=== PATIENT | female | born 1960 ===

== ENCOUNTER 2025-05-26 08:11 | Outpatient (CLI) | payer OTHER ==
[2025-05-26 09:36] LABS: URINE APPEARANCE Clear; URINE BILIRRUBIN Negative (NEGATIVE); URINE BLOOD Trace; URINE COLOR Yellow; URINE GLUCOSE Negative (NEGATIVE); URINE KETONE Negative (NEGATIVE); URINE LEUKOCYTE Trace; URINE NITRATE Negative; URINE PROTEIN Negative (NEGATIVE); URINE UROBILINOGEN 0.2 E.U./dl
[2025-05-26 09:37] LABS: URINE BACTERIA 100.7 uL (0.0-1933); URINE EPITHELIAL CELLS 28.2 uL (0.0-38.8); URINE RBC 32.8 uL (0.0-20.8); URINE WBC 14.6 uL (0.0-23.2)
[2025-05-26 09:39] LABS: BASO % 0.8 % (0.1-1.2); EOS # 0.56 (0.04-0.54); EOS % 9.1 % (0.7-7.0); LYMPH # 1.84 (1.18-3.74); LYMPH % 29.8 % (19.3-53.1); MEAN PLATELET VOLUME 9.70 fl (9.4-12.4); MONO # 0.36 (0.24-0.82); MONO % 5.8 % (4.7-12.5); NEUT # 3.36 (1.56-6.13); NEUT % 54.3 % (34.0-71.1); RED CELL DISTRIBUTION WIDTH 12.8 % (11.6-14.4)
[2025-05-26 09:41] LABS: URINE CAST 0.00 uL (0.0-1.40)
[2025-05-26 09:59] LABS: INR 1.0
[2025-05-26 10:51] LABS: ALT/SGPT 28.0 U/L (12-78); AST/SGOT 17.0 U/L (15-37); BILIRUBIN TOTAL 0.4 mg/dL (0.3-1.2); BUN CREA RATIO 10.0 (7.0-25.0); CREATININE SERUM 0.79 mg/dL (0.55-1.02); GFR 73.04; GLOBULINA 3.6 G/DL (2.4-3.5); GLUCOSE FASTING 101.0 mg/dL (65-100); LDH 215.0 U/L (84-246); OSMOLALITY SERUM 285.0 MOSM/KG (275-295); TSH 3.76 uIU/mL (0.358-3.74)
[2025-05-27 10:08] LABS: CA 125 9.7 U/mL (0.0-38.1); CA 19-9 10.0 U/mL (0-35)
== END 2025-05-26 08:12 | disposition home or self-care (01) ==
LOC: RAD 08:11
DX: G89.3 Neoplasm related pain (acute) (chronic) (principal); R10.20 Pelvic and perineal pain unspecified side; R19.00 Intra-abdominal and pelvic swelling, mass and lump, unspecified site; R19.09 Other intra-abdominal and pelvic swelling, mass and lump; N83.202 Unspecified ovarian cyst, left side; N83.291 Other ovarian cyst, right side; Z01.812 Encounter for preprocedural laboratory examination; Z01.818 Encounter for other preprocedural examination